=== PATIENT | female | born 1950 | race Caucasian/White ===

== ENCOUNTER → 2016-09-14 | Outpatient (CLI) | payer MEDICARE ==
--- NOTE | 2016-09-14 13:01 | CTL ---
EXAMINATION TYPE: CT Low Dose Lung DATE OF EXAM ORDERED: 09/14/2016 11:32 AM HISTORY: History tobacco use, Z 87.891. Lung cancer screening CT DLP: 77.[address] CTDI: 2.40 mGy Automated exposure control for dose reduction was used. SCREENING VISIT: 2 COMPARISON: Previous exam 11 March 2016 TECHNIQUE: Low dose computed tomography scan was performed through the chest at 1 mm thick sections a nd reconstructed images in the coronal plane at [address] DIAGNOSTIC QUALITY: Satisfactory FINDINGS: Left upper lobe lung nodule in subpleural location is stable axial image 54, right lower lo be lung nodule seen axial image #185 also stable. 2 additional nodules are no longer seen. COPD: Severity: Moderate as on prior. Fibrosis: Severity: None Lymph nodes: None Other findings: RIGHT PLEURAL SPACE: Effusion: None Calcification: None Thickening: None Pneumothorax: None LEFT PLEURAL SPACE: Effusion: None Calcification: None Thickening: None Pneumothorax: None HEART: Heart Size: Stable Coronary calcification: Coronary artery calcifications are present. Pericardial effusion: None OTHER FINDINGS: Upper abdomen: Small hiatal hernia is present Bony thorax: Stable Supraclavicular region: Unremarkable Other: Bilateral low density adrenal masses are present. Aorta is aneurysmal measuring 4 cm in the as cending portion IMPRESSION: Resolution of 2 pulmonary nodules, remaining nodules felt likely to be benign. Ascending aortic aneurysm. Coronary artery disease. Bilateral low-density adrenal masses. FOLLOW UP CT CHEST RECOMMENDATION: [address] LUNG RAD: BI-RADS 2
== END | disposition home or self-care (01) ==
LOC: RADCTMAIN 11:07
PROVIDERS: ATTEND Family Medicine
DX: Z12.2 Encounter for screening for malignant neoplasm of respiratory organs (principal); I25.10 Atherosclerotic heart disease of native coronary artery without angina pectoris; R91.8 Other nonspecific abnormal finding of lung field; Z87.891 Personal history of nicotine dependence

== ENCOUNTER → 2017-03-22 | Outpatient (CLI) | payer MEDICARE ==
--- NOTE | 2017-03-24 08:19 | MM ---
Reason for exam: screening (asymptomatic). Last mammogram was performed 11 years and 8 months ago. History: Patient is postmenopausal. Family history of breast cancer in grandmother. Benign stereotactic core biopsy of the left breast, December 02, 1999. Took estrogen for 1 year beginning at age 53. Physical Findings: A clinical breast exam by your physician is recommended on an annual basis and results should be correlated with mammographic findings. MG 3D Screening Mammo W/Cad Bilateral CC and MLO view(s) were taken. Prior study comparison: July 21, 2005, workup left diagnostic mammogram. July 14, 2005, bilateral screening mammogram w/CAD. The breast tissue is heterogeneously dense. This may lower the sensitivity of mammography. Previous mammotome biopsy within the left breast with adjacent regional calcifications. There is no discrete abnormality. ASSESSMENT: Negative, BI-RAD 1 RECOMMENDATION: Routine screening mammogram of both breasts in 1 year.
== END | disposition home or self-care (01) ==
LOC: RADMAMWWP 14:19
PROVIDERS: ATTEND Family Medicine
DX: Z12.31 Encounter for screening mammogram for malignant neoplasm of breast (principal)
CPT/HCPCS: 77063; G0202

== ENCOUNTER → 2017-03-30 | Outpatient (CLI) | payer MEDICARE ==
--- NOTE | 2017-03-31 00:04 | MR ---
EXAMINATION TYPE: MR brain wo con DATE OF EXAM: 03/30/2017 COMPARISON: NONE HISTORY: headaches, Blurry Vision Standard multiplanar, multisequence MRI departmental protocol Multiplanar, multisequence images of the brain were acquired. Diffusion weighted imaging was performe d. FINDINGS: Ventricles have normal size. There is no mass effect nor midline shift. There is no sign of intracranial hemorrhage. There is a 5 mm focus of increased signal at the vila-white matter junction left posterior frontal lobe. Brainstem appears intact. Corpus callosum appears normal. Sella turcica is normal. There is no evidence of an infarct. Optic chiasm appears normal. There is no evidence of an orbital mass. IMPRESSION: Single focus of increased signal in the left posterior frontal lobe white matter could relate to foca l small vessel ischemia. Otherwise negative exam. I do not see a cause for blurred vision. No evidenc e of cortical infarct.
== END | disposition home or self-care (01) ==
LOC: RADMRIMAIN 17:28
PROVIDERS: ATTEND Family Medicine
DX: R90.82 White matter disease, unspecified (principal); R51 Headache
CPT/HCPCS: 70551

== ENCOUNTER 2022-03-05 23:56 | Emergency (ER) | payer MEDICARE ==
[2022-03-06] VITALS: RESP 18; TEMP 98.3
[2022-03-06] MEDS ORDERED: LABETALOL SYRINGE 5 MG/ML IVP STA (00:31)
[2022-03-06] MEDS ORDERED: PROPARACAINE 0.5% OPHTH DROPS 15 ML BTL RIGHT EYE STA (00:32)
[2022-03-06] MEDS ORDERED: FLUORESCEIN STRIPS 1 MG STRIP RIGHT EYE ONE (00:32)
--- NOTE | 2022-03-06 01:37 | XR ---
EXAMINATION TYPE: XR wrist complete LT DATE OF EXAM: 03/06/2022 COMPARISON: NONE HISTORY: Fall. Pain TECHNIQUE: 4 views FINDINGS: There is slightly impacted transverse acute fracture distal radial metaphysis. No dislocati on. The carpal bones appear intact. Distal ulna is intact. There is moderate osteoarthritis at the fi rst carpometacarpal joint. IMPRESSION: Acute transverse slightly impacted fracture distal radial metaphysis.
--- NOTE | 2022-03-06 01:53 | CT ---
EXAMINATION TYPE: CT brain cspine wo con DATE OF EXAM: 03/06/2022 COMPARISON: CT brain 03/05/2017 HISTORY: fall, hit rt eye CT DLP: 525.6 mGycm Automated exposure control for dose reduction was used. There is cerebral cortical atrophy. There is no mass effect or midline shift. No sign of intracranial hemorrhage. The calvarium is intact. Skull base is intact. There is normal aeration of the mastoid s inuses. The cervical vertebra have normal alignment. No compression fracture. This spaces are fairly normal. There is cervical hypertrophic facet arthropathy. The prevertebral soft tissues are intact. IMPRESSION: There is some cerebral cortical atrophy. No acute intracranial abnormality. No change compared to the old exam. Cervical mild hypertrophic degenerative facet arthropathy and disc changes. No fracture seen.
--- NOTE | 2022-03-06 02:00 | CT ---
EXAMINATION TYPE: CT facial bones wo con DATE OF EXAM: 03/06/2022 COMPARISON: None HISTORY: fall, hit rt eye CT DLP: 525.6 mGycm Automated exposure control for dose reduction was used. Images obtained from the bottom of the mandible to the top of the frontal sinuses with no contrast. The mandibular ring is intact. The temporomandibular joints are intact. Zygomatic arches appear brittany l. The maxilla is intact. Nasal bone is intact. Sella turcica is normal. No evidence of orbital blowo ut fracture. No retro-orbital mass. The globes are symmetric. There is fairly normal aeration of the paranasal sin uses. IMPRESSION: Negative CT scan of the facial bones. No fracture seen.
[2022-03-06] MEDS ORDERED: TOPICAL SKIN ADHESIVE 1 EACH AMP TOPICAL ONE (02:32)
[2022-03-06] MEDS ORDERED: DIPH,PERTUS(ACELL)TETVAC-LF 0.5 ML VIAL IM ONE (02:35)
--- NOTE | 2022-03-06 02:59 | ED ---
Fall HPI - General Chief Complaint: Fall Stated Complaint: Fall Time Seen by Provider: 03/06/22 00:20 Source: family Mode of arrival: wheelchair - History of Present Illness Initial Comments: Patient is a 71-year-old female presenting for evaluation after fall. Patient states that she tripped on one step this evening, she hit the right side of her face against a flowerpot. There was no loss of consciousness and patient is not on any blood thinners. Patient admits to redness around the right eye, there is a small abrasion lateral to the right eye. She also admits to left wrist pain. She denies any vision or hearing changes, neck pain or stiffness, nausea, vomiting, dizziness, chest pain, difficulty breathing, palpitations, weakness, numbness, tingling. - Related Data Allergies Allergy/AdvReac Type Severity Reaction Status Date / Time No Known Allergies Allergy Verified 03/06/22 00:00 Review of Systems ROS Statement: Those systems with pertinent positive or pertinent negative responses have been documented in the HPI. ROS Other: All systems not noted in ROS Statement are negative. Past Medical History Past Medical History: Hypertension Past Surgical History: Appendectomy, Cholecystectomy, Hysterectomy Past Psychological History: No Psychological Hx Reported Smoking Status: Never smoker Past Alcohol Use History: None Reported Past Drug Use History: None Reported General Exam Limitations: no limitations General appearance: alert, in no apparent distress Head exam: Present: atraumatic, normocephalic, normal inspection Expanded Sclera/Conjunctival: Hemorrhage: Right Neck exam: Present: normal inspection. Absent: tenderness Respiratory exam: Present: normal lung sounds bilaterally. Absent: respiratory distress, wheezes, rales, rhonchi, stridor Cardiovascular Exam: Present: regular rate, normal rhythm, normal heart sounds. Absent: systolic murmur, diastolic murmur, rubs, gallop, clicks Left Hand Wrist exam: Present: tenderness, swelling. Absent: full ROM Vascular: Present: normal capillary refill, radial pulse (2+) Neurological exam: Present: alert, oriented X3, CN II-XII intact Psychiatric exam: Present: normal affect, normal mood Skin exam: Present: warm, dry, intact, normal color. Absent: rash Course Vital Signs 03/05/22 03/06/22 03/06/22 23:58 00:36 03:08 Temperature 98.3 F Pulse Rate 89 74 71 Respiratory 18 18 18 Rate Blood Pressure 206/113 164/86 158/101 O2 Sat by Pulse 96 95 96 Oximetry Procedures - Orthopedic Splinting/Casting Injury #1 Side: left Upper Extremity Injury Location: wrist Upper Extremity Immobilizer: volar splint Medical Decision Making - Medical Decision Making Patient is a 71-year-old female presenting for evaluation post fall. No loss of consciousness or blood thinners. Patient is complaining of left wrist pain, as well as redness to the right eye. On examination some conjunctival hemorrhages present to the right eye, there is also an abrasion lateral to the right eye. Patient has tenderness and swelling to the left wrist, limited range of motion. No focal neurological deficits. CT of the brain and cervical spine as well as the facial bones are negative for any acute process. X-ray shows distal radius fracture. Patient states visual acuity is 20/30 bilaterally. No evidence of globe rupture. Abrasion is repaired using exophytic and and Steri-Strips. Tetanus is updated. Follow-up with PCP. Report back to ER with any new or worsening symptoms. Discussed return parameters and answered all questions. Patient conveyed verbal understanding and agreed to the plan. I discussed this case in detail with my attending Dr. Lopez Disposition Clinical Impression: Fall, Distal radius fracture, Subconjunctival hemorrhage Disposition: HOME SELF-CARE Condition: Good Instructions (If sedation given, give patient instructions): Wrist Fracture in Adults (ED), Subconjunctival Hemorrhage (ED), Fall Prevention for Older Adults (ED) Additional Instructions: Follow-up with PCP and orthopedics. Report back to ER with any new or worsening symptoms. Take Motrin and Tylenol as needed for pain control. Is patient prescribed a controlled substance at d/c from ED?: No Referrals: Farooq Escalera MD [Primary Care Provider] - 1-2 days Lilia Stein DO [Doctor of Osteopathic Medicine] - 1-2 days Time of Disposition: 02:59
[2022-03-06 03:08] VITALS: BP 158/101; PULSE 71
== END 2022-03-06 03:08 | disposition home or self-care (01) ==
LOC: EC 23:56
DX: S52.502A Unspecified fracture of the lower end of left radius, initial encounter for closed fracture (principal); H11.30 Conjunctival hemorrhage, unspecified eye; I10 Essential (primary) hypertension; W19.XXXA Unspecified fall, initial encounter; Z23 Encounter for immunization
CPT/HCPCS: 70450; 70486; 72125; 90471; 96374; 99284

== ENCOUNTER → 2022-08-14 | Outpatient (CLI) | payer MEDICARE ==
--- NOTE | 2022-08-14 10:37 | CA ---
Lexiscan Nuclear Stress Test Report Name: Xiang Rizo Exam Date: 08/14/2022 09:24 Exam Location: [facility] Ht (in): 59 Wt (lb): 130 BSA: 1.54 Ordering Phys: Tiburcio Calix MD Referring Phys: Tiburcio Calix MD Technologist: Dillon Cooper Age: 71 Gender: F : 1950 Procedure CPT: Indications: R93.1 abnormal findings on diagnostic imaging ICD-10 Codes: Patient History: Chest Pain Medications: Meds past 24 hrs: Pretest Chest Pain: STRESS TEST Lexiscan Protocol Exercise Duration (min:sec): 01:[address] Depressions (mm): Angina Score: Tripp Score: Resting HR (bpm): 48 Peak HR (bpm): 74 Resting BP (mmHg): 117 / 75 Peak BP (mmHg): / 79 MPHR: 150 Target HR: 128 % MPHR: 49 METS: 1.0 Total Dose: Peak Dose: Atropine: Double Product: BP Response: Stress Termination: Completion of protocol Stress Symptoms: HEADACHE Stress Summary: ECG ANALYSIS Resting ECG: Stress ECG: CONCLUSIONS Baseline EKG revealed a normal sinus rhythm with very minor nonspecific ST abnormality. With Lexiscan administration the heart rate went up from 51-71 bpm and the blood pressure changed from 117/75-109/75. Patient did not have any significant symptoms other than slight headache. EKG remained unremarkable. The nuclear scan results which are more pertinent will be reported by the radiologist. This is a unremarkable Lexiscan stress test by EKG criteria. Nuclear portion of the stress test will be reported by the radiologist Dr. Reno Alexander MD (Electronically Signed) Final Date: 14 August 2022 10:36
--- NOTE | 2022-08-14 12:07 | NM ---
EXAMINATION TYPE: NM stress lexiscan cardiolite DATE OF EXAM: 08/14/2022 COMPARISON: NONE HISTORY: History of hypertension and hypercholesterolemia along with tobacco use in the past presents with chest pain TECHNIQUE: After the intravenous administration of 9.7 mCi Tc 99m Sestamibi - Cardiolite resting SPE CT images acquired 50 minutes post injection. The patient received 0.4mg Lexiscan, 25.3 mCi Tc 99m Sestamibi - Stress images obtained [address] injection FINDINGS: Review of stress and rest SPECT images demonstrates no distinct perfusion abnormality. Gated analysi s shows normal wall motion with an estimated left ventricular ejection fraction of 71 %. IMPRESSION: No scintigraphic evidence for reversible ischemia.
== END | disposition home or self-care (01) ==
LOC: RADNMMAIN 07:51
PROVIDERS: ATTEND Internal Medicine
DX: R93.1 Abnormal findings on diagnostic imaging of heart and coronary circulation (principal); I10 Essential (primary) hypertension; E78.00 Pure hypercholesterolemia, unspecified
CPT/HCPCS: 93017; 78452; A9500

== ENCOUNTER → 2022-12-04 | Outpatient (CLI) | payer MEDICARE ==
--- NOTE | 2022-12-04 08:06 | XR ---
EXAMINATION TYPE: XR chest 2V DATE OF EXAM: 12/04/2022 COMPARISON: NONE HISTORY: Shortness of breath TECHNIQUE: Frontal and lateral views of the chest are obtained. FINDINGS: Scattered senescent parenchymal changes noted. Hyperinflation compatible with COPD. No evidence for infiltrate. Linear atelectasis right midlung zone. Heart size is stable. Mediastinal structures are stable and grossly unremarkable. No evidence for hilar prominence. Degenerative changes dorsal spine. IMPRESSION: 1. No evidence for acute pulmonary disease.
== END | disposition home or self-care (01) ==
LOC: RADXRMAIN 07:29
PROVIDERS: ATTEND Internal Medicine
DX: J18.9 Pneumonia, unspecified organism (principal)
CPT/HCPCS: 71046

== ENCOUNTER → 2023-06-04 | Outpatient (CLI) | payer MEDICARE ==
--- NOTE | 2023-06-04 19:11 | CA ---
Transthoracic Echo Report Name: Xiang Mckeon Age: 72 Gender: F : 1950 Exam Date: 06/04/2023 16:54 Exam Location: [facility] Ht (in): 59 Wt (lb): 130 Ordering Physician: Tiburcio Calix MD Attending/Referring Phys: Corporate General Manager Gabriela Shook RDCS Procedure CPT: Indications: I35.1 NONRHEUMATIC AORTIC (VALVE) INSUFFICIENCY Cardiac Hx: Technical Quality: Good Contrast 1: Total Dose (mL): Contrast 2: Total Dose (mL): MEASUREMENTS (Male / Female) Normal Values 2D ECHO LV Diastolic Diameter PLAX 4.7 cm 4.2 - 5.9 / 3.9 - 5.3 cm LV Systolic Diameter PLAX 3.9 cm IVS Diastolic Thickness 1.1 cm 0.6 - 1.0 / 0.6 - 0.9 cm LVPW Diastolic Thickness 1.1 cm 0.6 - 1.0 / 0.6 - 0.9 cm LV Relative Wall Thickness 0.5 RV Internal Dim ED PLAX 3.5 cm LA Systolic Diameter LX 3.4 cm 3.0 - 4.0 / 2.7 - 3.8 cm LV Diastolic Volume MOD 4C 83.8 cm??? LV Systolic Volume MOD 4C 44.8 cm??? LV Ejection Fraction MOD 4C 46.5 % LV Cardiac Index MOD 4C 1477.5 cm???/min???m??? LV Diastolic Length 4C 7.4 cm LV Systolic Length 4C 6.4 cm LV Diastolic Volume MOD 2C 42.1 cm??? LV Systolic Volume MOD 2C 12.7 cm??? LV Ejection Fraction MOD 2C 69.9 % LV Cardiac Index MOD 2C 1115.7 cm???/min???m??? LV Diastolic Length 2C 7.6 cm LV Systolic Length 2C 6.1 cm LA Volume 44.6 cm??? 18 - 58 / 22 - 52 cm??? LA Volume Index 28.1 cm???/m??? 16 - 28 cm???/m??? M-MODE Aortic Root Diameter MM 3.4 cm MV E Point Septal Separation 0.7 cm AV Cusp Separation MM 2.2 cm DOPPLER AV Peak Velocity 136.6 cm/s AV Peak Gradient 7.5 mmHg MV Area PHT 2.6 cm??? Mitral E Point Velocity 68.0 cm/s Mitral A Point Velocity 96.0 cm/s Mitral E to A Ratio 0.7 MV Deceleration Time 288.8 ms MV E' Velocity 4.5 cm/s Mitral E to MV E' Ratio 15.0 TR Peak Velocity 253.1 cm/s TR Peak Gradient 25.6 mmHg Right Ventricular Systolic Press 30.3 mmHg FINDINGS Left Ventricle Left ventricular ejection fraction is estimated at 60-65 %. Left ventricular cavity size normal. Mildly increased septal wall thickness. Mildly increased posterior wall thickness. No obvious regional wall motion abnormalities. Right Ventricle Mild right ventricular dilatation. Right ventricular systolic pressure within normal limits. Right Atrium Normal right atrial size. Left Atrium Normal left atrial size. Mitral Valve Structurally normal mitral valve. Mild to moderate mitral regurgitation. Aortic Valve Trileaflet aortic valve. No aortic valve stenosis or regurgitation. Aortic valve sclerosis. Tricuspid Valve Structurally normal tricuspid valve. Trace to mild tricuspid regurgitation. Pulmonic Valve Structurally normal pulmonic valve. Trace pulmonic regurgitation. Pericardium No pericardial effusion. Aorta Normal size aortic root and proximal ascending aorta. CONCLUSIONS Normal LV systolic function Yuxl-up-azgbelid mitral regurgitation Previewed by: Dr. John De Jesus MD (Electronically Signed) Final Date: 04 June 2023 19:10
--- NOTE | 2023-06-06 18:23 | CTL ---
EXAMINATION TYPE: CT Low Dose Lung DATE OF EXAM ORDERED: 06/04/2023 HISTORY: Former smoker. Lung cancer screening CT DLP: 74.[address] CTDI: 2.3 mGy Automated exposure control for dose reduction was used. SCREENING VISIT: Initial COMPARISON: None TECHNIQUE: Low dose computed tomography scan was performed through the chest at 1 mm thick sections a nd reconstructed images in the coronal plane at [address] DIAGNOSTIC QUALITY: Satisfactory FINDINGS: LUNG NODULES: None. 1. Peribronchial thickening appears to be present. Relative chronic bronchitis. Some mild dependent f ibrosis may be present within the posterior lungs. LUNGS: COPD: Severity: Mild Fibrosis: Severity: Mild Lymph nodes: None Other findings: After calcifications within the aorta. RIGHT PLEURAL SPACE: Effusion: None Calcification: None Thickening: None Pneumothorax: LEFT PLEURAL SPACE: Effusion: None Calcification: None Thickening: None Pneumothorax: None HEART: Heart Size: Normal Coronary calcification: None Pericardial effusion: None OTHER FINDINGS: Upper abdomen: Normal Bony thorax: Supraclavicular region: Normal Other: Ascending thoracic aorta at the level the main pulmonary artery measures 4.3 cm. The main pul monary artery at the bifurcation measures 3.2 cm. IMPRESSION: 1. No suspicious changes to suggest primary or metastatic neoplasm. 2. Ascending thoracic aortic aneurysm 4.[address] CHEST RECOMMENDATION: Follow-up low-dose CT chest one year CT LUNG RAD: Lung-Rad 2 Benign Appearance or Behavior
== END | disposition home or self-care (01) ==
LOC: RADECHMAIN 16:49
PROVIDERS: ATTEND Internal Medicine
DX: Z12.2 Encounter for screening for malignant neoplasm of respiratory organs (principal); I71.21 Aneurysm of the ascending aorta, without rupture; I34.0 Nonrheumatic mitral (valve) insufficiency; I35.1 Nonrheumatic aortic (valve) insufficiency; Z87.891 Personal history of nicotine dependence
CPT/HCPCS: 71271; 93306

== ENCOUNTER → 2023-10-08 | Outpatient (CLI) | payer MEDICARE ==
--- NOTE | 2023-10-10 17:28 | US ---
EXAMINATION TYPE: US liver DATE OF EXAM: 10/08/2023 COMPARISON: CT low-dose lung cancer screening 06/04/2023, 09/14/2016, 03/11/2016 CLINICAL INDICATION: Female, 72 years old with history of [id number] ELEVATION OF LEVELS; Elevated liver e nzymes. cholecystectomy TECHNIQUE: Multiple sonographic images of the right upper quadrant are obtained. FINDINGS: EXAM MEASUREMENTS: Liver Length: 16.4 cm Gallbladder Wall: Surgically absent CBD: 0.8 cm Right Kidney: 11.0 x 4.9 x 4.9 cm Pancreas: Obscured by bowel gas Liver: appears wnl as visualized Gallbladder: Surgically absent CBD: wnl Right Kidney: no evidence of hydronephrosis *Hypoechoic lesion adjacent to liver and right kidney = 2.3 x 2.1 x 3.3cm Liver appears within normal limits without focal lesion. Noncirrhotic morphology. Pancreas is obscure d by overlying bowel gas. Common bile duct is within normal limits post cholecystectomy. No hydroneph rosis on the right kidney. No solid mass on the right kidney. There is a hypoechoic lesion situated b etween the liver and right kidney measuring up to 3.3 cm corresponding to a benign lipid rich adrenal adenoma on prior CT. IMPRESSION: 1. No acute process. 2. Post cholecystectomy. 3. Redemonstration of benign lipid rich adrenal adenoma from prior CT.
--- NOTE | 2023-10-10 17:45 | US ---
EXAMINATION TYPE: US thyroid st tissue head/neck DATE OF EXAM: 10/08/2023 COMPARISON: NONE CLINICAL INDICATION: Female, 72 years old with history of R94.6 Abnormal results of thyroid studies; abnormal labs GLAND SIZE: Right Lobe: 4.7 x 2.5 x 2.6 cm Overall Parenchyma: heterogeneous Left Lobe: 4.1 x 2.0 x 1.9 cm Overall Parenchyma: heterogeneous Isthmus Thickness: 0.4 cm NODULES RIGHT: # of nodules measured on right: 2 1. 2.4 X 1.9 x 2.0 cm, lower lateral, mixed cystic and solid, hypoechoic nodule, which is wider patricio n tall, with ill-defined margins, with echogenic foci. TR 4. Prior size: no prior 2. 1.7 X 1.3 x 1.7 cm, mid, mixed cystic and solid, hypoechoic nodule, which is wider than tall, wi th smooth margins, without echogenic foci. TR 3. Prior size: no prior LEFT: # of nodules measured on left: 2 1. 1.2 X 1.0 x 1.2 cm, upper , solid or almost completely solid, isoechoic nodule, which is wider t sandoval tall, with smooth margins, without echogenic foci. TR 3. Prior size: no prior 2. 0.9 X 1.3 x 1.0 cm, mid , solid or almost completely solid, hypoechoic nodule, which is taller than wide, with smooth margins, with echogenic foci. TR 4. Prior size: no prior ISTHMUS: # of nodules measured in the isthmus: 0 Bilateral neck scanned, no evidence of lymphadenopathy. IMPRESSION: Bilateral thyroid nodules as described above. Right thyroid lobe 2.4 cm TR 4 nodule FNA is recommende d. Follow-up ultrasound in one year is recommended. Remaining nodules.
== END | disposition home or self-care (01) ==
LOC: RADUSWWP 09:11
PROVIDERS: ATTEND Internal Medicine
DX: E04.2 Nontoxic multinodular goiter (principal); R94.6 Abnormal results of thyroid function studies; R74.01 Elevation of levels of liver transaminase levels; Z90.49 Acquired absence of other specified parts of digestive tract
CPT/HCPCS: 76536; 76705

== ENCOUNTER 2023-10-19 12:05 | Day surgery (SDC) | payer MEDICARE ==
[2023-10-19 14:22] VITALS: RESP 16; TEMP 97.6
--- NOTE | 2023-10-19 14:22 | US ---
ULTRASOUND GUIDED FNA THYROID BIOPSY: CLINICAL HISTORY: Request for 2.4 cm right thyroid nodule FINDINGS: The procedure was explained to the patient. The risks, complications, benefits and alternatives were discussed and any questions were answered. Informed consent was obtained. Patient was placed supin e on the ultrasound table and prepped and draped in the usual sterile fashion. Utilizing a 25 gauge needle, five passes were made into the requested right-sided 2.4 cm nodule.. Patient was stable throughout the procedure. Pathology is pending. All elements of maximal barrier technique were utilized. IMPRESSION: 1. Successful ultrasound guided FNA thyroid biopsy.
[2023-10-19 14:23] VITALS: BP 180/105; PULSE 72
== END 2023-10-19 14:15 | disposition home or self-care (01) ==
LOC: RADPROMAIN 12:05
PROVIDERS: ATTEND Internal Medicine
DX: E04.1 Nontoxic single thyroid nodule (principal)
CPT/HCPCS: 10005; 88173; 88305

== ENCOUNTER → 2023-12-23 | Outpatient (CLI) | payer MEDICARE | END | disposition home or self-care (01) | LOC: LABPRL 20:40 | PROVIDERS: ATTEND Registered Nurse | DX: I10 Essential (primary) hypertension (principal); E78.2 Mixed hyperlipidemia; J44.9 Chronic obstructive pulmonary disease, unspecified | CPT/HCPCS: 80053; 80061; 82306; 83036; 83735; 84443; 84550; 85025 ==

== ENCOUNTER → 2024-03-22 | Outpatient (CLI) | payer MEDICARE ==
--- NOTE | 2024-03-22 16:43 | US ---
EXAMINATION TYPE: US thyroid st tissue head/neck DATE OF EXAM: 03/22/2024 COMPARISON: NONE CLINICAL INDICATION: Female, 73 years old with history of R22.1 LOCALIZED SWELLING, MASS AND LUMP, NE CK; Swelling left supraclavicular area since September. TECHNIQUE: Scanned left supraclavicular area at patient's area of concern. FINDINGS: Hypoechoic area with hyperechoic center seen left supraclavicular area: 0.7 x 1.5 x 0.4 cm . IMPRESSION: Hypoechoic area in the area of the left supraclavicular region somewhat ill-defined possibly represen ting alignment,. Consider CT imaging with palpable marker placement. For further evaluation. [facility], , 03/22/2024 4:41 PM
== END | disposition home or self-care (01) ==
LOC: RADUSWWP 15:43
PROVIDERS: ATTEND Internal Medicine Hematology & Oncology
DX: R22.1 Localized swelling, mass and lump, neck (principal)
CPT/HCPCS: 76536

== ENCOUNTER → 2024-04-17 | Outpatient (CLI) | payer MEDICARE ==
[2024-04-17 09:45] LABS: African American GFR (CKD) 89 (>60 ml/min/1.73 sqM); Blood Urea Nitrogen 26 mg/dL (7-17); Non-African American GFR(CKD) 77 (>60 ml/min/1.73 sqM)
--- NOTE | 2024-04-17 10:34 | CT ---
EXAMINATION TYPE: CT neck chest w con DATE OF EXAM: 04/17/2024 10:16 AM COMPARISON: Ultrasound 03/22/2022 CLINICAL INDICATION: Female, 73 years old with history of I65.23 CAROTID STENOSIS; PHH, Bilateral nec k swelling. Marked by BBs. Pt had prior US that recommended CT. TECHNIQUE: CT scan of the neck is performed following with IV Contrast, patient injected with 100 mL of Isovue 3 00. Axial images are obtained, coronal and sagittal reformatted images are reviewed. CT DLP: 707.60 mGycm Automated exposure control for dose reduction was used. FINDINGS: Airway: No gross abnormality seen. Parotid/submandibular glands: No gross abnormality seen. Carotid/Vascular Structures: Atherosclerotic change of the carotid arteries. Severe atherosclerotic c hange of the origin of the left subclavian artery. Osseous Structures: Degenerative changes and scoliosis of the spine. Other: Multinodular thyroid with the largest nodule seen on the right measuring approximately 1.5 cm. Area of palpable abnormality with markers demonstrates no suspicious appearing mass. Small possible tiny lipoma noted by recent ultrasound is not seen with certainty days CT scan. CHEST: Diffuse emphysematous changes with subsegmental areas of scarring or atelectasis. No focal pne umonia. No suspicious nodule. Trace pericardial fluid. Ascending aorta measures 3.7 cm. Calcification near the aortic root and ther e is extensive coronary artery calcification and mild cardiomegaly. No sizable pleural effusion. Pulm onary arteries prominent correlate for pulmonary arterial hypertension. A postcholecystectomy changes. Hypodense lesions involving the kidneys too small to characterize but likely related to simple cysts. There are bilateral adrenal nodules with the largest measuring 3.8 cm on the right apparently having a solid component. Recommend MRI findings indeterminate. Additionally there is an indeterminate 1.4 c m pancreatic body nodule. Small hiatal hernia. Mild reduced attenuation of liver can be associated wi th hepatic steatosis. IMPRESSION: 1. Thyromegaly with multinodular thyroid. 2. COPD with no acute intrathoracic process. 3. Bilateral adrenal nodules which are indeterminate the largest measuring 3.8 cm. Additionally, ther e is a 1. 4 cm pancreatic body soft tissue nodule. Recommend follow-up MRI. 4. Dense coronary artery calcification [facility], , 04/17/2024 10:32 AM
== END | disposition home or self-care (01) ==
LOC: RADCTMAIN 08:34
PROVIDERS: ATTEND Internal Medicine
DX: I65.23 Occlusion and stenosis of bilateral carotid arteries (principal); E04.2 Nontoxic multinodular goiter; J44.9 Chronic obstructive pulmonary disease, unspecified; I25.10 Atherosclerotic heart disease of native coronary artery without angina pectoris; E27.8 Other specified disorders of adrenal gland
CPT/HCPCS: 82565; 84520; 70491; 71260; 36415; Q9967

== ENCOUNTER → 2024-04-26 | Outpatient (CLI) | payer MEDICARE ==
[2024-04-26 15:19] LABS: Carcinoembryonic Antigen 7.9 ng/mL (0.0-4.9)
[2024-04-26 17:47] LABS: Cancer Antigen 19-9 13.2 U/mL (0.0-34.9)
[2024-04-27 03:37] LABS: ACTH 2.18 pg/mL (0.00-45.99)
== END | disposition home or self-care (01) ==
LOC: LABWHC1 10:01
PROVIDERS: ATTEND Internal Medicine
DX: R79.9 Abnormal finding of blood chemistry, unspecified (principal)
CPT/HCPCS: 36415; 82024; 82150; 82378; 82533; 83615; 83690; 86301

== ENCOUNTER → 2024-05-05 | Outpatient (CLI) | payer MEDICARE ==
--- NOTE | 2024-05-06 11:26 | MR ---
EXAMINATION TYPE: MR abdomen wo/w con DATE OF EXAM: 05/05/2024 5:36 PM COMPARISON: CT scan abdomen from 04/17/2024. 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 Post contrast imaging was performed. Post IV contrast subtraction images were also submitted for review. IV Contrast: 6 mL Gadobutrol FINDINGS: LOWER CHEST: The heart is mildly enlarged for size. ABDOMEN Liver: No evidence for hepatic steatosis or cirrhosis. Gallbladder and Bile ducts: No evidence for ductal dilation, or biliary stricture or evidence of chol edocholithiasis. The gallbladder is r surgically absent. Common hepatic duct up to 11 mm common bile duct up to 7 mm at the pancreatic head.. Pancreas: No ductal dilation. No evidence for solid mass.r scattered cystic lesions seen throughout t he pancreas and uncinate process measuring 6 mm in the pancreatic body/tail measuring 17 x 10 mm. Spleen: Normal for size. Adrenal glands: Right adrenal gland nodule measuring in totality 44 mm x 29 mm. There is area of the more lateral inferior aspect measuring 22 mm of enhancement. In have significant loss of signal on ch emical shift of phase imaging. Left adrenal gland nodule measuring 25 x 18 mm. Kidneys: No evidence for obstructive uropathy. No suspicious renal masses. Simple appearing left high T2 low T1 signal cysts measuring 20 mm. Stomach and Bowel: No evidence for bowel wall thickening or evidence for obstruction. Retroperitoneum/Peritoneum: No evidence of pneumoperitoneum or free fluid. Vasculature: No aortic aneurysm. Musculoskeletal: The osseous structures appear intact. Lymph Nodes: No gross evidence for lymphadenopathy. Abdominal wall: Unremarkable. There is an adnexal cystic structure measuring 69 x 54 mm thought to be arising from the right ovary. IMPRESSION: 1. Pancreatic uncinate process and body/tail cystic lesions possibly representing sequela of prior p ancreatitis versus side branch intraductal mucinous neoplasm versus other cystic neoplasms. Attention on follow-up imaging in one year with MRI MRCP with contrast to ensure stability. 2. Adrenal gland nodules bilaterally that remain indeterminate. They have do not have the classical appearance of a lipid rich adrenal adenoma. Correlate with history of malignancy versus history of ma lignancies may be real present metastatic lesions. 3. Bilateral Bosniak type I equivalent renal cyst 4. There is an adnexal cystic structure measuring 69 x 54 mm thought to be arising from the right ov karlos surgical consultation for management given patient's age. [facility], , 05/06/2024 11:23 AM
== END | disposition home or self-care (01) ==
LOC: RADMRIMAIN 16:09
PROVIDERS: ATTEND Internal Medicine
DX: K86.2 Cyst of pancreas (principal); N28.1 Cyst of kidney, acquired; I51.7 Cardiomegaly
CPT/HCPCS: 74183; A9585

== ENCOUNTER → 2024-08-23 | Outpatient (CLI) | payer MEDICARE ==
[2024-08-23 12:06] LABS: INR 0.9 (<1.2); Prothrombin Time 9.9 sec (10.0-12.5)
[2024-08-23 12:48] LABS: Partial Thromboplastin Time 21.6 sec (22.0-30.0)
[2024-08-23 15:32] LABS: Appearance,Urine Clear (Clear); Bilirubin,Urine Negative (Negative); Blood,Urine Negative (Negative); Color,Urine Yellow (Yellow); Ketones,Urine Negative (Negative); Nitrite,Urine Negative (Negative); PH, Urine 5.5; Specific Gravity,Urine 1.019 (1.001-1.030); Urobilinogen,Urine 0.2 E.U./DL
[2024-08-23 15:58] LABS: Basophils # (A) 0.06 X 10*3/uL (0.00-0.10); Basophils % (A) 0.3 %; Eosinophils # (A) 0.02 X 10*3/uL (0.04-0.35); Eosinophils % (A) 0.1 %; HCT 43.5 % (37.2-46.3); HGB 14.4 g/dL (12.0-15.0); Lymphocytes % (A) 15.1 %; MCH 32.3 pg (27.0-32.0); MCHC 33.1 g/dL (32.0-37.0); MCV 97.5 FL (80.0-97.0); Mean Platelet Volume 10.2 FL (9.5-12.2); Monocytes # (A) 0.95 X 10*3/uL (0.20-1.00); Monocytes % (A) 5.5 %; NRBC Per 100 WBC 0 X 10*3/uL (0.00-0.01); Neutrophils # (A) 13.45 X 10*3/uL (1.80-7.70); Platelet Count 466 X 10*3/uL (140-440); RBC 4.46 X 10*6/uL (4.10-5.20); RDW 13.1 % (11.5-14.5); WBC 17.25 X 10*3/uL (4.50-10.00)
[2024-08-23 16:03] LABS: % Iron Saturation 15.05 (12.00-45.00); ALT 30 U/L (8-44); AST 18 U/L (13-35); Albumin 4.2 g/dL (3.8-4.9); Albumin/Globulin Ratio 1.91 Ratio (1.60-3.17); Alkaline Phosphatase 44 U/L (41-126); BUN/Creat Ratio 40.17 Ratio (12.00-20.00); Blood Urea Nitrogen 24.1 mg/dL (9.0-27.0); Calcium 9.4 mg/dL (8.7-10.3); Carbon Dioxide 25.4 mmol/L (21.6-31.8); Chloride 102 mmol/L (96-109); Chol/HDL Ratio 5.02 Ratio; Creatine Kinase 24 U/L (26-186); Ferritin 67.7 ng/mL (10.0-291.0); Globulin 2.2 g/dL (1.6-3.3); Glucose 106 mg/dL (70-110); Iron 70 UG/DL (50-170); LDL Cholesterol,Calculated 183.4 mg/dL (0.0-131.0); Magnesium 2.2 mg/dL (1.5-2.4); Potassium 3.9 mmol/L (3.5-5.5); Sodium 140 mmol/L (135-145); Total Bilirubin 0.4 mg/dL (0.3-1.2); Total Iron Binding Capacity 465 UG/DL (228-460); Total Protein 6.4 g/dL (6.2-8.2); Uric Acid 5.3 mg/dL (2.9-7.7)
[2024-08-23 16:16] LABS: Bacteria,Urine None Seen (None Seen); Uric Acid Crystals,Urine Present
[2024-08-24 10:30] LABS: APTT 33 Sec(s) (<43); Dilute Russell Viper Venom 31 Sec(s) (<44)
== END | disposition home or self-care (01) ==
LOC: LABWHC1 10:42
PROVIDERS: ATTEND Internal Medicine
DX: I10 Essential (primary) hypertension (principal); E78.2 Mixed hyperlipidemia; E03.8 Other specified hypothyroidism; M85.88 Other specified disorders of bone density and structure, other site; R23.3 Spontaneous ecchymoses
CPT/HCPCS: 36415; 80053; 80061; 81001; 82232; 82306; 82550; 82728; 83540; 83550; 83735; 84439; 84443; 84550; 85025; 85610; 85613; 85730

== ENCOUNTER → 2024-10-13 | Outpatient (CLI) | payer MEDICARE ==
--- NOTE | 2024-10-18 23:38 | MR ---
EXAMINATION TYPE: MR brain wo/w con DATE OF EXAM: 10/13/2024 5:19 PM COMPARISON: None. CLINICAL INDICATION: Female, 73 years old with history of I25.85 CHRONIC CORONARY MICROVASCULAR DYSFU NCTION, dizziness TECHNIQUE: Multiplanar, multiecho imaging on a 3.0 [place] magnet is performed through the brain. Stud y is performed within 24 hours of arrival to the hospital.Multiplanar, multiecho imaging on a 3.0 [place] magnet is performed through the knee. IV Contrast: 6 mL Gadobutrol (None, if empty) FINDINGS: The craniovertebral junction is normal. The pituitary is normal. Optic chiasm is normal Diffusion-weighted imaging is performed. No abnormal hyperintensity is present to suggest an acute i ntracranial infarct or acute ischemic change. There is scattered periventricular white matter hyperintensities, likely on the basis of chronic whit e matter ischemic change Ventricles and sulci are appropriate for the patient age. No suspicious enhancement is evident left A1 vascular segment appears hypoplastic Bilateral fluid filled. Film mastoid air cells are present. Correlate for bilateral mild mastoiditis. IMPRESSION: 1. Scattered periventricular white matter hyperintensity likely on the basis of chronic white matter ischemic change [facility], , 10/18/2024 11:35 PM
== END | disposition home or self-care (01) ==
LOC: RADMRIMAIN 16:19
PROVIDERS: ATTEND Internal Medicine
DX: I25.85 Chronic coronary microvascular dysfunction (principal)
CPT/HCPCS: 70553; A9585